=== PATIENT | male | born 1960 ===

== ENCOUNTER 2024-02-28 10:38 | Day surgery (SDC) | payer OTHER ==
[2024-02-28] VITALS (10 sets, daily range): BP systolic 110–158; BP diastolic 64–104
[~2024-02-28] VITALS: Ht 180.3 cm; Wt 86.3 kg
[~2024-02-28 10:38] MED LIST: Aspir 8181 MG PO; BUPR150ER PO; Buspirone HCl15 MG PO; Chantix1 MG PO; GABA300 PO; HYDHCL25 PO; LOSA50 PO; METO25ER PO; NICO2 PO; Norco 5-325 Ta1 EACH PO; PARO20 PO; PRAZ2 PO; ROSUVASTATIN CA20 MG PO; ULTRA LIDO60 GM UD; VITAMIN D3 PO; XARELTO2.5 MG PO
[2024-02-28] MEDS ORDERED: NS 2,000 ML IV ONE (13:03)
[2024-02-28] MEDS ORDERED: Heparin Sodium 1000 Units/ML 10ML MDV ONE (13:03)
[2024-02-28] MEDS ORDERED: Midazolam HCl 1MG / ML 2ML Vial ONE ×2 (13:04→13:48)
[2024-02-28] MEDS ORDERED: Nitroglycerin 2 MG/20 ML BTL ONE (13:04)
[2024-02-28] MEDS ORDERED: NS 250 ML IV ONE (13:13)
[2024-02-28] MEDS ORDERED: FentaNYL Citrate 50 MCG/ML 2 ML Injection ONE (13:16)
--- NOTE | 2024-02-28 16:07 | NUR ---
patient sitting up in bed eating . left groin site emely
--- NOTE | 2024-02-28 16:10 | NUR ---
patient sitting up having meal, visiting with friend
[2024-02-28] MEDS ORDERED: CLOP75 (16:24)
--- NOTE | 2024-02-28 17:30 | NUR ---
spoke to [facility], they will have plavix ready for patient tonight
--- NOTE | 2024-02-28 17:35 | NUR ---
patient verabalized understanding of discharge instructions and precautions, iv site dced with catheter intact, groin site remains soft and nontender, no bleeding, no hematoma, patient verbalizes understanding that he grover [facility] and start tonight.patient taken to waiting car via wheelchair friend driving
== END 2024-02-29 03:14 | disposition home or self-care (01) ==
LOC: MHTC 10:38
DX: I70.223 Atherosclerosis of native arteries of extremities with rest pain, bilateral legs (principal); L97.512 Non-pressure chronic ulcer of other part of right foot with fat layer exposed; E78.5 Hyperlipidemia, unspecified; I12.9 Hypertensive chronic kidney disease with stage 1 through stage 4 chronic kidney disease, or unspecified chronic kidney disease; N18.30 Chronic kidney disease, stage 3 unspecified; F43.10 Post-traumatic stress disorder, unspecified; F17.210 Nicotine dependence, cigarettes, uncomplicated; Z79.82 Long term (current) use of aspirin; Z79.899 Other long term (current) drug therapy; Z98.890 Other specified postprocedural states
CPT/HCPCS: 76937; 99152; 99153; C1714; C1725; C1760; C1769; C1874; C1887; C1894; C2623; J1644; J2250; J3010; J7030; J7050; Q9967